=== PATIENT | male | born 1995 | race Caucasian/White ===

== ENCOUNTER 2016-12-31 14:55 | Emergency (ER) | payer MEDICAID, OTHER ==
[~2016-12-31] VITALS: Ht 188 cm; Wt 84.5 kg
[2016-12-31] MEDS ORDERED: SODIUM CHLORIDE 0.9% 1,000 ML IV ONE (15:32)
[2016-12-31 15:44] LABS: BASOPHILS % (AUTO) 0.4 % (0.0-2.0); EOSINOPHILS % (AUTO) 0.5 % (1.0-6.0); HEMATOCRIT 40.4 % (41-53); HEMOGLOBIN 13.7 g/dL (13.5-17.5); LYMPHOCYTES # (AUTO) 0.4 K/uL (1.0-4.8); LYMPHOCYTES % (AUTO) 5.6 % (22.0-44.0); MEAN CORPUSCULAR HEMOGLOBIN 31.5 pg (26.0-34.0); MEAN CORPUSCULAR HGB CONC 33.8 G/dL (31.0-37.0); MEAN CORPUSCULAR VOLUME 93 fL (80-100); MONOCYTES # (AUTO) 1.1 K/uL (0.1-1.0); MONOCYTES % (AUTO) 15.2 % (2.0-9.0); NEUTROPHILS # (AUTO) 5.8 K/uL (1.8-7.7); NEUTROPHILS % (AUTO) 78.3 % (40.0-70.0); PLATELET COUNT (AUTO) 149 K/uL (150-450); RED BLOOD CELL COUNT(AUTO) 4.34 MIL/uL (4.50-5.90); RED CELL DISTRIBUTION WIDTH 14.1 % (11.5-14.5); WHITE BLOOD COUNT (AUTO) 7.4 K/uL (4.5-11.0)
[2016-12-31] MEDS ORDERED: KETOROLAC TROMETHAMINE 30 MG/ML VIAL IVP ONE (15:45)
[2016-12-31] MEDS ORDERED: ONDANSETRON HCL 4 MG/2 ML VIAL IVP ONE (15:45)
[2016-12-31 16:05] LABS: ANION GAP 8 mmol/L (8-16); CALCIUM, TOTAL 8.8 mg/dL (8.8-10.5); CARBON DIOXIDE 29 mmol/L (22-29); CHLORIDE 102 mmol/L (98-107); CREATININE 0.98 mg/dL (0.60-1.30); GLOMERULAR FILTR. RATE CALC > 60 mL/min (>60); POTASSIUM 3.7 mmol/L (3.5-5.1); SODIUM SERUM 139 mmol/L (136-145); UREA NITROGEN, BLOOD 8 mg/dL (7-18)
[2016-12-31 16:08] LABS: ALANINE AMINOTRANSFERASE 49 U/L (12-78); ALBUMIN 3.8 g/dL (3.4-5.0); ASPARTATE AMINOTRANSFERASE 33 U/L (15-37); BILIRUBIN,TOTAL 0.6 mg/dL (0.1-1.0); TOTAL PROTEIN, SERUM 7.3 g/dL (6.4-8.2)
[2016-12-31 16:21] LABS: ADD UA MICROSCOPIC NO; APPEARANCE,URINE CLEAR (CLEAR); GLUCOSE, URINE (UA) NEGATIVE (NEGATIVE); KETONES,URINE NEGATIVE (NEGATIVE); LEUKOCYTE ESTERASE ,URINE NEGATIVE (NEGATIVE); OCCULT BLOOD,URINE NEGATIVE (NEGATIVE); PROTEIN,URINE NEGATIVE (NEGATIVE)
[2016-12-31 17:02] VITALS: BP 126/68
== END 2016-12-31 17:09 | disposition home or self-care (01) ==
LOC: EMS 14:56
DX: R10.31 Right lower quadrant pain (principal); R10.33 Periumbilical pain; R11.2 Nausea with vomiting, unspecified; R51 Headache; K92.1 Melena; F17.210 Nicotine dependence, cigarettes, uncomplicated; F12.90 Cannabis use, unspecified, uncomplicated; F19.90 Other psychoactive substance use, unspecified, uncomplicated
CPT/HCPCS: 36415; 80053; 81003; 83690; 85025; 96361; 96374; 96375; 99284; J1885; J2405; J7030

== ENCOUNTER 2021-08-02 10:46 | Inpatient (IN) | payer MEDICAID, OTHER ==
[~2021-08-02] VITALS: Ht 188 cm; Wt 77.1 kg
[2021-08-02] MEDS ORDERED: DiphenhydrAMINE HCL 50 MG CAPSULE PO ONE (11:15)
[2021-08-02] MEDS ORDERED: PERTUSS(ACELL),DIPH,TET VAC/PF 0.5 ML SYRINGE IM. ONE (11:15)
[2021-08-02] MEDS ORDERED: HALOPERIDOL 5 MG TABLET PO ONE (11:15)
[2021-08-02] MEDS ORDERED: SODIUM CHLORIDE 0.9% 250 ML IRRIG SOLUTION BOTTLE IRRIG ONE (11:15)
[2021-08-02] MEDS ORDERED: LORazepam 2 MG TABLET PO ONE (11:15)
[2021-08-02 11:24] LABS: EOSINOPHILS % (AUTO) 0.5 % (1.0-6.0); HEMATOCRIT 42.5 % (41-53); HEMOGLOBIN 14.4 g/dL (13.5-17.5); LYMPHOCYTES % (AUTO) 21.4 % (22.0-44.0); MEAN CORPUSCULAR HEMOGLOBIN 31.5 pg (26.0-34.0); MEAN CORPUSCULAR HGB CONC 33.8 G/dL (31.0-37.0); MEAN CORPUSCULAR VOLUME 93 fL (80-100); MONOCYTES # (AUTO) 0.6 K/uL (0.1-1.0); MONOCYTES % (AUTO) 11.9 % (2.0-9.0); NEUTROPHILS # (AUTO) 3.1 K/uL (1.8-7.7); NEUTROPHILS % (AUTO) 65.2 % (40.0-70.0); PLATELET COUNT (AUTO) 191 K/uL (150-450); RED BLOOD CELL COUNT(AUTO) 4.56 MIL/uL (4.50-5.90); RED CELL DISTRIBUTION WIDTH 13.7 % (11.5-14.5)
[2021-08-02 11:27] LABS: COVID AG,FIA SOURCE NASAL SWAB
[2021-08-02 11:43] LABS: ANION GAP 6 mmol/L (8-16); CALCIUM, TOTAL 8.9 mg/dL (8.8-10.5); CARBON DIOXIDE 30 mmol/L (22-29); CHLORIDE 105 mmol/L (98-107); CREATININE 0.75 mg/dL (0.60-1.30); GLOMERULAR FILTR. RATE CALC > 60 mL/min (>60); GLUCOSE,RANDOM 101 mg/dL (70-110); POTASSIUM 4.7 mmol/L (3.5-5.1); SODIUM SERUM 141 mmol/L (136-145); UREA NITROGEN, BLOOD 9 mg/dL (7-18)
[2021-08-02 11:44] LABS: AMPHET/METH SCREEN,URINE NEGATIVE (NEGATIVE); BARBITURATE SCREEN, URINE NEGATIVE (NEGATIVE); BENZODIAZEPINES SCREEN,URINE NEGATIVE (NEGATIVE); CANNABINOID SCREEN,URINE NEGATIVE (NEGATIVE); COCAINE SCREEN,URINE NEGATIVE (NEGATIVE); METHADONE SCREEN, URINE NEGATIVE (NEGATIVE); OPIATE SCREEN,URINE NEGATIVE (NEGATIVE)
[2021-08-02 11:46] LABS: PHENCYCLIDINE SCREEN,URINE NEGATIVE (NEGATIVE)
[2021-08-02 11:49] LABS: ALANINE AMINOTRANSFERASE 16 U/L (12-78); ALKALINE PHOSPHATASE 70 U/L (46-116); ASPARTATE AMINOTRANSFERASE 18 U/L (15-37); BILIRUBIN,TOTAL 0.7 mg/dL (0.1-1.0); TOTAL PROTEIN, SERUM 7.6 g/dL (6.4-8.2)
[2021-08-02] MEDS ORDERED: HALOPERIDOL 5 MG TABLET PO PRN (13:45)
[2021-08-02 19:44] VITALS: BP 130/83
[2021-08-02] MEDS: ZOLPIDEM TARTRATE 10 MG TABLET PO PRN (21:05)
[2021-08-03 04:58] VITALS: BP 128/80
[2021-08-03] MEDS: BACITRACIN 28 GM OINTMENT TP SCH (08:46)
[2021-08-03 08:48] VITALS: BP 126/78
[2021-08-03] MEDS: LORazepam 2 MG TABLET PO PRN (08:54)
[2021-08-03] MEDS ORDERED: BENZOCAINE/MENTHOL LOZENGE PO PRN (09:45)
[2021-08-03] MEDS ORDERED: CloNIDine HCL 0.1 MG TABLET PO PRN (09:45)
[2021-08-03] MEDS ORDERED: LOPERAMIDE HCL 2 MG CAPSULE PO PRN (09:45)
[2021-08-03] MEDS ORDERED: MAGNESIUM HYDROXIDE SUSPENSION 30 ML UDCUP PO PRN (09:45)
[2021-08-03] MEDS ORDERED: BACITRACIN 28 GM OINTMENT TP PRN (09:45)
[2021-08-03] MEDS ORDERED: MAG HYDROX/AL HYDROX/SIMETH ES 30 ML SUSPENSION UDCUP PO PRN (09:45)
[2021-08-03] MEDS ORDERED: IBUPROFEN 600 MG TABLET PO PRN (09:45)
[2021-08-03] MEDS ORDERED: ONDANSETRON HCL 4 MG TABLET PO PRN (09:45)
[2021-08-03] MEDS ORDERED: ALBUTEROL SULFATE HFA 90 MCG/PUFF 8 GM INHALER IH PRN (09:45)
[2021-08-03] MEDS ORDERED: ACETAMINOPHEN 325 MG TABLET PO PRN (09:45)
[2021-08-03] MEDS ORDERED: PETROLATUM,WHITE 28 GM JELLY TP PRN (09:45)
[2021-08-03 16:23] VITALS: BP 135/86
[2021-08-03] MEDS: OLANZapine 10 MG TABLET PO SCH (21:23)
[2021-08-04 05:31] VITALS: BP 108/63
[2021-08-04 08:42] VITALS: BP 121/72
[2021-08-04] MEDS: DOCUSATE SODIUM 100 MG CAPSULE PO SCH (08:50)
[2021-08-04] MEDS: OMEPRAZOLE 20 MG CAPSULE PO SCH (08:50)
[2021-08-04] MEDS: BACITRACIN 28 GM OINTMENT TP SCH (08:51)
[2021-08-04] MEDS: LORazepam 2 MG TABLET PO PRN (08:51)
[2021-08-04] MEDS ORDERED: LORazepam 2 MG/ML VIAL ONE (12:25)
[2021-08-04] MEDS ORDERED: HALOPERIDOL LACTATE 5 MG/ML VIAL ONE (12:26)
[2021-08-04] MEDS ORDERED: DiphenhydrAMINE HCL 50 MG/ML VIAL ONE (12:26)
[2021-08-04] MEDS ORDERED: LORazepam 2 MG/ML VIAL IM ONE (12:30)
[2021-08-04] MEDS ORDERED: DiphenhydrAMINE HCL 50 MG/ML VIAL IM ONE (12:30)
[2021-08-04] MEDS ORDERED: HALOPERIDOL LACTATE 5 MG/ML VIAL IM ONE (12:30)
[2021-08-04 15:15] VITALS: BP 129/89
[2021-08-04 16:11] VITALS: BP 111/82
[2021-08-04 17:30] VITALS: BP 106/73
[2021-08-04] MEDS: OLANZapine 10 MG TABLET PO SCH (20:14)
[2021-08-05 04:33] VITALS: BP 126/73
[2021-08-05 08:17] VITALS: BP 125/68
[2021-08-05] MEDS: DOCUSATE SODIUM 100 MG CAPSULE PO SCH (08:33)
[2021-08-05] MEDS: MULTIVITAMINS WITH MINERALS, THERAPEUTIC TABLET PO SCH (08:34)
[2021-08-05] MEDS: LORazepam 2 MG TABLET PO PRN (08:34)
[2021-08-05] MEDS: OMEPRAZOLE 20 MG CAPSULE PO SCH (08:34)
[2021-08-05] MEDS: BACITRACIN 28 GM OINTMENT TP SCH (08:38)
[2021-08-05 16:06] VITALS: BP 130/90
[2021-08-05] MEDS: ZOLPIDEM TARTRATE 10 MG TABLET PO PRN (20:37)
[2021-08-05] MEDS: OLANZapine 10 MG TABLET PO SCH (20:37)
[2021-08-06 05:29] VITALS: BP 126/72
[2021-08-06 08:11] VITALS: BP 133/75
[2021-08-06] MEDS: OMEPRAZOLE 20 MG CAPSULE PO SCH (08:39)
[2021-08-06] MEDS: MULTIVITAMINS WITH MINERALS, THERAPEUTIC TABLET PO SCH (08:39)
[2021-08-06] MEDS: DOCUSATE SODIUM 100 MG CAPSULE PO SCH (08:39)
[2021-08-06] MEDS: BACITRACIN 28 GM OINTMENT TP SCH (08:39)
[2021-08-06] MEDS ORDERED: OLAN10 PO (11:47)
== END 2021-08-06 12:15 | disposition home or self-care (01) | DRG 750 ==
LOC: EDUNIT# 10:46 → EMS 10:53 → B3A 14:39
PROVIDERS: ADMIT Psychiatry & Neurology Psychiatry; ATTEND Psychiatry & Neurology Psychiatry
PROC: 0HQEXZZ Repair Left Lower Arm Skin, External Approach (ICD-10-PCS; principal; 2021-08-02)
DX: F25.0 Schizoaffective disorder, bipolar type (principal); F10.10 Alcohol abuse, uncomplicated; F12.90 Cannabis use, unspecified, uncomplicated; F41.9 Anxiety disorder, unspecified; G47.00 Insomnia, unspecified; K59.00 Constipation, unspecified; S51.812A Laceration without foreign body of left forearm, initial encounter; F17.210 Nicotine dependence, cigarettes, uncomplicated; Y90.9 Presence of alcohol in blood, level not specified; F15.90 Other stimulant use, unspecified, uncomplicated; Z20.822 Contact with and (suspected) exposure to COVID-19; X58.XXXA Exposure to other specified factors, initial encounter; Z91.52 Personal history of nonsuicidal self-harm; Y93.89 Activity, other specified; Y92.89 Other specified places as the place of occurrence of the external cause; Y99.8 Other external cause status; Z71.41 Alcohol abuse counseling and surveillance of alcoholic; Z71.51 Drug abuse counseling and surveillance of drug abuser
CPT/HCPCS: 12002; 80053; 85025; 90715; 99285; G0480; J1200; J1630; J2060

== ENCOUNTER 2023-11-22 15:18 | Emergency (ER) | payer MEDICAID ==
[~2023-11-22] VITALS: Ht 185.4 cm; Wt 79.5 kg
[~2023-11-22 15:18] MED LIST: OLAN10 PO
[2023-11-22 15:23] VITALS: TEMP 98
[2023-11-22] MEDS ORDERED: VALP250C48 PO (15:27)
[2023-11-22] MEDS ORDERED: PARO10TA89 PO (15:27)
[2023-11-22] MEDS ORDERED: DIPH50CA37 PO (16:58)
[2023-11-22] MEDS ORDERED: PERM60CR4 TP (16:58)
[2023-11-22 17:07] VITALS: BP 124/76; PULSE 83; RESP 16
== END 2023-11-22 18:17 | disposition home or self-care (01) ==
LOC: EMS 15:33
DX: L30.9 Dermatitis, unspecified (principal); F41.9 Anxiety disorder, unspecified; F12.90 Cannabis use, unspecified, uncomplicated; F15.90 Other stimulant use, unspecified, uncomplicated
CPT/HCPCS: 99282; Z7502

== ENCOUNTER 2023-12-13 16:37 | Emergency (ER) | payer MEDICAID, OTHER ==
[~2023-12-13] VITALS: Ht 185.4 cm; Wt 81.8 kg
[~2023-12-13 16:37] MED LIST changes: +DIPH50CA37 PO; +PARO10TA89 PO; +PERM60CR4 TP; +VALP250C48 PO
[2023-12-13 16:40] VITALS: BP 123/75; PULSE 88; RESP 18; TEMP 98.4
[2023-12-13] MEDS ORDERED: DIVA-111 PO (16:43)
[2023-12-13] MEDS ORDERED: FLUO-418 PO (16:43)
[2023-12-13] MEDS ORDERED: PRAZ1 PO (16:43)
[2023-12-13] MEDS: LIDOCAINE 1% 10 ML VIAL SQ ONE (19:24)
[2023-12-13] MEDS: KETOROLAC TROMETHAMINE 60 MG/2 ML VIAL IM ONE (19:24)
[2023-12-13] MEDS ORDERED: DOXY-354 PO (19:53)
[2023-12-13] MEDS ORDERED: ACET-66 PO (19:53)
[2023-12-13] MEDS ORDERED: IBUP-1554 PO (19:53)
[2023-12-13] MEDS ORDERED: CEPH-558 PO (19:53)
[2023-12-13] MEDS: DOXYCYCLINE HYCLATE 100 MG TABLET PO ONE (19:54)
[2023-12-13] MEDS: CEPHALEXIN MONOHYDRATE 500 MG CAPSULE PO ONE (19:55)
== END 2023-12-13 20:07 | disposition home or self-care (01) ==
LOC: EMS 16:37
DX: L03.317 Cellulitis of buttock (principal); F41.9 Anxiety disorder, unspecified; F32.A Depression, unspecified; F17.210 Nicotine dependence, cigarettes, uncomplicated
CPT/HCPCS: 99284; 10160; 96372; J1885; J3490

== ENCOUNTER 2024-02-02 13:35 | Emergency (ER) | payer OTHER ==
[~2024-02-02] VITALS: Ht 185.4 cm; Wt 78.6 kg
[~2024-02-02 13:35] MED LIST changes: +ACET-66 PO; +CEPH-558 PO; -DIPH50CA37 PO; +DIVA-111 PO; +DOXY-354 PO; +FLUO-418 PO; +IBUP-1554 PO; -OLAN10 PO; -PARO10TA89 PO; -PERM60CR4 TP; +PRAZ1 PO; -VALP250C48 PO
[2024-02-02 13:38] VITALS: BP 113/59; PULSE 63; RESP 15; TEMP 97.6; O2SAT 99
== END 2024-02-02 17:32 | disposition home or self-care (01) ==
LOC: EMS 13:35
DX: S40.021A Contusion of right upper arm, initial encounter (principal); F41.9 Anxiety disorder, unspecified; F32.A Depression, unspecified; F17.210 Nicotine dependence, cigarettes, uncomplicated; X58.XXXA Exposure to other specified factors, initial encounter; Y93.11 Activity, swimming; Y92.89 Other specified places as the place of occurrence of the external cause; Y99.8 Other external cause status
CPT/HCPCS: 99282; Z7502

== ENCOUNTER 2024-02-12 19:26 | Emergency (ER) | payer OTHER ==
[~2024-02-12] VITALS: Ht 185.4 cm; Wt 77.3 kg
[~2024-02-12 19:26] MED LIST changes: -ACET-66 PO; -CEPH-558 PO; -DOXY-354 PO; -IBUP-1554 PO
[2024-02-12 19:49] VITALS: TEMP 98
[2024-02-12] MEDS: ONDANSETRON HCL 4 MG/2 ML VIAL IVP ONE (20:32)
[2024-02-12] MEDS: SODIUM CHLORIDE 0.9% 1,000 ML IV ONE (20:32)
[2024-02-12 20:45] LABS: BASOPHILS % (AUTO) 0.2 % (0.0-2.0); EOSINOPHILS % (AUTO) 0.4 % (1.0-6.0); HEMATOCRIT 48.4 % (41-53); HEMOGLOBIN 15.9 g/dL (13.5-17.5); LYMPHOCYTES # (AUTO) 0.3 K/uL (1.0-4.8); LYMPHOCYTES % (AUTO) 1.9 % (22.0-44.0); MEAN CORPUSCULAR HEMOGLOBIN 31.4 pg (26.0-34.0); MEAN CORPUSCULAR HGB CONC 32.8 G/dL (31.0-37.0); MEAN CORPUSCULAR VOLUME 96 fL (80-100); MONOCYTES # (AUTO) 1.2 K/uL (0.1-1.0); MONOCYTES % (AUTO) 8.9 % (2.0-9.0); PLATELET COUNT (AUTO) 169 K/uL (150-450); RED BLOOD CELL COUNT(AUTO) 5.05 MIL/uL (4.50-5.90); RED CELL DISTRIBUTION WIDTH 15.5 % (11.5-14.5); WHITE BLOOD COUNT (AUTO) 13.5 K/uL (4.5-11.0)
[2024-02-12 20:46] LABS: NEUTROPHILS % (AUTO) 88.6 % (40.0-70.0)
[2024-02-12 20:51] LABS: APPEARANCE,URINE CLEAR (CLEAR); BILIRUBIN,URINE NEGATIVE (NEGATIVE); COLOR,URINE YELLOW (YELLOW); GLUCOSE, URINE (UA) NEGATIVE (NEGATIVE); LEUKOCYTE ESTERASE ,URINE NEGATIVE (NEGATIVE); NITRATE,URINE NEGATIVE (NEGATIVE); OCCULT BLOOD,URINE NEGATIVE (NEGATIVE); PROTEIN,URINE NEGATIVE (NEGATIVE); SPECIFIC GRAVITIY, URINE 1.023 (1.003-1.030); UROBILINOGEN,URINE <=1.0 mg/dL (<=1.0)
[2024-02-12 21:03] LABS: ANION GAP 10 mmol/L (8-16); CALCIUM, TOTAL 8.2 mg/dL (8.8-10.5); CARBON DIOXIDE 26 mmol/L (22-29); CHLORIDE 105 mmol/L (98-107); CREATININE 1.07 mg/dL (0.60-1.30); GLOMERULAR FILTR. RATE CALC > 60 mL/min (>60); GLUCOSE,RANDOM 117 mg/dL (70-110); POTASSIUM 4.8 mmol/L (3.5-5.1); SODIUM SERUM 141 mmol/L (136-145); UREA NITROGEN, BLOOD 13 mg/dL (7-18)
[2024-02-12 21:09] LABS: ALANINE AMINOTRANSFERASE 51 U/L (12-78); ALBUMIN 3.3 g/dL (3.4-5.0); ALKALINE PHOSPHATASE 58 U/L (46-116); ASPARTATE AMINOTRANSFERASE 41 U/L (15-37); BILIRUBIN,TOTAL 0.6 mg/dL (0.1-1.0); LIPASE 17 U/L (16-77); TOTAL PROTEIN, SERUM 6.6 g/dL (6.4-8.2)
[2024-02-12 23:12] VITALS: BP 128/80; PULSE 87; RESP 16; O2SAT 98
== END 2024-02-12 23:14 | disposition home or self-care (01) ==
LOC: EMS 19:26
DX: K52.9 Noninfective gastroenteritis and colitis, unspecified (principal); R11.2 Nausea with vomiting, unspecified; F17.210 Nicotine dependence, cigarettes, uncomplicated
CPT/HCPCS: 99283; 96374; 96361; 80048; 80076; 81003; 83690; 85025; 36415; J2405; J7030